=== PATIENT | female | born 1965 | race Caucasian/White ===

== ENCOUNTER → 2016-05-22 | Outpatient (CLI) | payer BC | LOC: KOH-I 11:00 | DX: N20.1 Calculus of ureter (principal); N20.0 Calculus of kidney; N13.30 Unspecified hydronephrosis; K76.89 Other specified diseases of liver | CPT/HCPCS: 74176 ==

== ENCOUNTER → 2021-04-14 | Outpatient (CLI) | payer BC | LOC: KOH-I 16:30 | DX: N20.0 Calculus of kidney (principal); R52 Pain, unspecified; R93.5 Abnormal findings on diagnostic imaging of other abdominal regions, including retroperitoneum | CPT/HCPCS: 74018 ==

== ENCOUNTER → 2021-04-20 | Outpatient (CLI) | payer BC | LOC: KOH-I 08:21 → CT 15:00 | DX: N20.0 Calculus of kidney (principal) | CPT/HCPCS: 74176 ==

== ENCOUNTER → 2021-09-29 | Outpatient (CLI) | payer BC | LOC: CT 09:00 | DX: R31.0 Gross hematuria (principal); N28.1 Cyst of kidney, acquired; K76.89 Other specified diseases of liver; N20.0 Calculus of kidney | CPT/HCPCS: 36415; 82565; 84520; Q9967 ==